=== PATIENT | male | born 1970 | race African-American/Black ===

== ENCOUNTER 2022-01-28 12:04 | Observation (INO) | payer BC ==
[~2022-01-28] VITALS: Ht 177.8 cm; Wt 106.6 kg
[2022-01-28] MEDS ORDERED: SODIUM CHLORIDE 0.9% 1000ML 1,000 ML IV STA (12:08)
[2022-01-28] MEDS ORDERED: ONDANSETRON HCL INJ 2MG/ML 2ML 2 MG/ML VIAL IV STA (12:08)
[2022-01-28] MEDS ORDERED: Morphine 4mg INJECTION 4 MG/ML INJ IV STA (12:08)
[2022-01-28] MEDS ORDERED: Vancomycin IV 1 GM in SODIUM CHLORIDE 0.9% 250ML 250 ML IV ONE (12:30)
[2022-01-28 13:07] LABS: BASOPHILS % 0.4 % (0.0-1.0); EOSINOPHILS % 0.3 % (0.0-6.0); HEMATOCRIT 42.2 % (38.2-49.6); HEMOGLOBIN 14.1 g/dL (14.0-18.0); LYMPHOCYTES # (AUTO) 3.5 (1.0-3.2); MEAN CORPUSCULAR HEMOGLOBIN 25.9 pg (28-32); MEAN CORPUSCULAR HGB CONC 33.4 g/dL (31-35); MEAN CORPUSCULAR VOLUME 77.4 fL (81-99); MONOCYTES # (AUTO) 0.8 (0.2-0.8); MONOCYTES % 7.3 % (4.4-11.3); NEUTROPHILS # (AUTO) 6.2 (2.1-6.9); NEUTROPHILS % 58.8 % (38.7-80.0); PLATELET COUNT 308 x10e3/uL (140-360); RED BLOOD COUNT 5.45 x10e6/uL (4.3-5.7); RED CELL DISTRIBUTION WIDTH 15.2 % (11.7-14.4)
[2022-01-28] MEDS ORDERED: ONDANSETRON HCL INJ 2MG/ML 2ML 2 MG/ML VIAL IV PRN (13:15)
[2022-01-28 13:22] LABS: INR 0.99; PARTIAL THROMBOPLASTIN TIME 35.5 seconds (23.8-35.5); PROTHROMBIN TIME 13.3 seconds (11.9-14.5)
[2022-01-28] MEDS: DOXYCYCLINE HYCLATE TABLET 100 MG TAB PO SCH ×2 (13:24→20:22)
[2022-01-28 13:31] LABS: ALBUMIN 4.2 g/dL (3.5-5.0); CALCIUM 9.9 mg/dL (8.4-10.2); CREATININE, SERUM 1.88 mg/dL (0.72-1.25); MAGNESIUM 1.8 MG/DL (1.3-2.1)
[2022-01-28 13:37] LABS: CREATINE KINASE MB 1.3 ng/mL (0-5.0)
[2022-01-28] MEDS ORDERED: TETANUS/DIPHTHERIA TOX ADULT 0.5 ML SYR IM ONE (14:00)
[2022-01-28] MEDS: SODIUM CHLORIDE 0.9% 1000ML 1,000 ML IV SCH ×3 (20:15→21:15)
[2022-01-28] MEDS: Morphine 4mg INJECTION 4 MG/ML INJ IV PRN (20:21)
[2022-01-28 23:25] VITALS: BP 116/89
[2022-01-29] MEDS ORDERED: LISINOPRIL10 MG PO (00:06)
[2022-01-29] MEDS ORDERED: METHYLPREDNISOLONE SOD SUCC 125 MG/2ML VIAL IV ONE (05:00)
[2022-01-29] MEDS: SODIUM CHLORIDE 0.9% 1000ML 1,000 ML IV SCH ×6 (05:19→22:18)
[2022-01-29] MEDS: Morphine 4mg INJECTION 4 MG/ML INJ IV PRN ×3 (05:57→14:59)
[2022-01-29 06:18] LABS: BASOPHILS % 0.5 % (0.0-1.0); EOSINOPHILS # (AUTO) 0.1 (0.0-0.4); EOSINOPHILS % 0.8 % (0.0-6.0); HEMOGLOBIN 12.2 g/dL (14.0-18.0); LYMPHOCYTES % 39.7 % (18.0-39.1); MEAN CORPUSCULAR HEMOGLOBIN 25.8 pg (28-32); MEAN CORPUSCULAR HGB CONC 34.9 g/dL (31-35); MEAN CORPUSCULAR VOLUME 74.2 fL (81-99); MONOCYTES # (AUTO) 0.7 (0.2-0.8); MONOCYTES % 8.9 % (4.4-11.3); NEUTROPHILS # (AUTO) 3.7 (2.1-6.9); NEUTROPHILS % 49.8 % (38.7-80.0); PLATELET COUNT 257 x10e3/uL (140-360); RED BLOOD COUNT 4.72 x10e6/uL (4.3-5.7); RED CELL DISTRIBUTION WIDTH 15.4 % (11.7-14.4)
[2022-01-29 06:54] LABS: ALBUMIN 3.3 g/dL (3.5-5.0); CALCIUM 9.2 mg/dL (8.4-10.2); CREATININE, SERUM 1.76 mg/dL (0.72-1.25)
[2022-01-29 08:00] VITALS: BP 116/89
[2022-01-29 08:32] VITALS: BP 104/69
[2022-01-29] MEDS: LISINOPRIL 20 MG TAB PO SCH (09:01)
[2022-01-29] MEDS: DOXYCYCLINE HYCLATE TABLET 100 MG TAB PO SCH ×2 (09:01→17:14)
[2022-01-29 11:31] VITALS: BP 111/72
[2022-01-29] MEDS ORDERED: Morphine 4mg INJECTION 4 MG/ML INJ IV PRN (16:15)
[2022-01-29] MEDS ORDERED: METHYLPREDNISOLONE SOD SUCC 40 MG/ML VIAL 1ML IV SCH (17:00)
[2022-01-29 17:10] VITALS: BP 97/64
[2022-01-29 20:00] VITALS: BP 123/58
[2022-01-29 21:00] VITALS: BP 123/58
[2022-01-30] VITALS: BP 115/56
[2022-01-30 04:00] VITALS: BP 121/58
[2022-01-30] MEDS: SODIUM CHLORIDE 0.9% 1000ML 1,000 ML IV SCH ×2 (04:15→05:15)
[2022-01-30 06:10] LABS: BASOPHILS % 0.1 % (0.0-1.0); HEMATOCRIT 36.4 % (38.2-49.6); HEMOGLOBIN 12.1 g/dL (14.0-18.0); LYMPHOCYTES # (AUTO) 2.3 (1.0-3.2); LYMPHOCYTES % 14.4 % (18.0-39.1); MEAN CORPUSCULAR HEMOGLOBIN 25.9 pg (28-32); MEAN CORPUSCULAR HGB CONC 33.2 g/dL (31-35); MEAN CORPUSCULAR VOLUME 77.9 fL (81-99); MONOCYTES # (AUTO) 0.5 (0.2-0.8); MONOCYTES % 3.1 % (4.4-11.3); NEUTROPHILS # (AUTO) 12.9 (2.1-6.9); PLATELET COUNT 254 x10e3/uL (140-360); RED BLOOD COUNT 4.67 x10e6/uL (4.3-5.7); RED CELL DISTRIBUTION WIDTH 14.8 % (11.7-14.4)
[2022-01-30 06:28] LABS: ANION GAP 14.5 mmol/L (8-16); CALCIUM 8.7 mg/dL (8.4-10.2); CREATININE, SERUM 1.55 mg/dL (0.72-1.25); POTASSIUM 4.5 mmol/L (3.5-5.1)
[2022-01-30 08:00] VITALS: BP 105/67
[2022-01-30 08:40] VITALS: BP 105/67
[2022-01-30] MEDS: LISINOPRIL 20 MG TAB PO SCH (09:49)
[2022-01-30] MEDS: DOXYCYCLINE HYCLATE TABLET 100 MG TAB PO SCH (09:49)
== END 2022-01-30 10:32 | disposition home or self-care (01) ==
LOC: ER 12:12 → ERHOLD 13:19 → MED/SURG3 18:45
PROVIDERS: ADMIT Family Medicine; ATTEND Family Medicine
DX: M65.841 Other synovitis and tenosynovitis, right hand (principal); N17.9 Acute kidney failure, unspecified; I10 Essential (primary) hypertension; M19.031 Primary osteoarthritis, right wrist; L03.113 Cellulitis of right upper limb; I12.9 Hypertensive chronic kidney disease with stage 1 through stage 4 chronic kidney disease, or unspecified chronic kidney disease; N18.30 Chronic kidney disease, stage 3 unspecified; Z20.822 Contact with and (suspected) exposure to COVID-19
CPT/HCPCS: 0223U; 36415 ×3; 73218; 80048; 80053 ×2; 82550 ×2; 82553; 83605; 83735 ×2; 84484; 84550; 85025 ×3; 85610; 85730; 86140; 86200; 86431; 87040; 90714; 99284; G0378 ×3; J0696 ×2; J2270 ×3; J2405; J2920; J2930; J3370; J7030 ×2; J7050